=== PATIENT | female | born 1975 | race Caucasian/White ===

== ENCOUNTER 2022-05-28 08:13 | Outpatient (CLI) | payer BC, SELFPAY ==
[2022-05-28 14:09] LABS: Albumin* 4.4 g/dL (3.3-5.0); Chloride* 106 mmol/L (96-114)
[2022-05-28 14:10] LABS: Potassium* 5.1 mmol/L (3.6-5.1); Sodium* 139 mmol/L (135-149)
[2022-05-28 14:12] LABS: Aspartate Amino Transferase* 27 U/L (12-35); Bilirubin Total* 0.9 mg/dL (0.1-1.5); Blood Urea Nitrogen* 12 mg/dL (5-24); Carbon Dioxide* 27 mmol/L (20-32); Cholesterol* 253 mg/dL (90-199); Creatinine* 0.8 mg/dL (0.5-1.5); Estimated Glomerular Filt Rate 91 ml/min; Glucose* 99 mg/dL (60-115); Total Protein* 6.9 g/dL (6.0-8.3)
[2022-05-28 14:13] LABS: Alanine Aminotransferase* 24 U/L (4-35); Alkaline Phosphatase* 71 U/L (40-150); HDL Cholesterol* 101 mg/dL (>=50); LDL Cholesterol Calculated 131 mg/dL (<100); Triglycerides* 104 mg/dL (40-149)
== END 2022-05-28 08:14 | disposition home or self-care (01) ==
PROVIDERS: PCP Physician Assistant Medical; Visit Provider Physician Assistant Medical
DX: Z00.00 Encounter for general adult medical examination without abnormal findings (principal); Z13.6 Encounter for screening for cardiovascular disorders; Z13.29 Encounter for screening for other suspected endocrine disorder
CPT/HCPCS: 80053; 80061; 84443

== ENCOUNTER 2023-04-29 07:45 | Outpatient (CLI) | payer BC, SELFPAY | END 2023-04-29 07:46 | disposition home or self-care (01) | PROVIDERS: PCP Physician Assistant Medical; Visit Provider Physician Assistant Medical | DX: Z00.00 Encounter for general adult medical examination without abnormal findings (principal); Z13.6 Encounter for screening for cardiovascular disorders; Z13.29 Encounter for screening for other suspected endocrine disorder; Z13.0 Encounter for screening for diseases of the blood and blood-forming organs and certain disorders involving the immune mechanism | CPT/HCPCS: 80053; 80061; 84443 ==

== ENCOUNTER 2024-07-08 08:36 | Outpatient (CLI) | payer BC, SELFPAY | END 2024-07-08 08:37 | disposition home or self-care (01) | PROVIDERS: PCP Physician Assistant Medical; Visit Provider Physician Assistant Medical | DX: Z13.6 Encounter for screening for cardiovascular disorders (principal); Z13.29 Encounter for screening for other suspected endocrine disorder; Z11.3 Encounter for screening for infections with a predominantly sexual mode of transmission; Z11.59 Encounter for screening for other viral diseases; Z13.9 Encounter for screening, unspecified | CPT/HCPCS: 80053; 80061; 84443; 86703; 86803 ==